=== PATIENT | male | born 1985 | race Caucasian/White ===

== ENCOUNTER 2022-01-16 14:11 | Inpatient (IN) | payer OTHER ==
[~2022-01-16] VITALS: Ht 152.4 cm; Wt 88.5 kg
--- NOTE | 2022-01-16 14:33 | NUR ---
PACIENTE MASCULINO DESORIENTADO X3, LLEGA EN S[place]A DE [place], AMIGO REFIERE SUSAN ESTADO TOMANDO DESDE EL ROMEO DE JAYME SIN PARAR.
--- NOTE | 2022-01-16 16:00 | NUR ---
SE RECIBE PTE MASCULINO ALERTA Y ORIENTADO ES EVASLUADO POR ,SE ORIENTA A PTE SOBRE ORDEN MEDICA,PTE POCO COOPERDOR CON EL TRATAMIENTO,SE REALIZA CAMBIO DE SABANAS Y CAMA YA QUE PTE BLANKENSHIP VOMITADO SOBRE LA CAMA Y SE CANALIZA Y COLOCA H/L Y SE ANDERSON MUESTRAS Y SE ENVIAN A LABORATORIO,SE ADMINISTRAN MEDICAMENTOS LOS CUALES TOLERA, Y SE PTE ESCUPE SOBRE LA CAMA, VOMITA SOBRE LA CAMA Y KRISTINE TIENE UN ENVASE PARA VOMITAR,SE MANTIENE A PTE POCO COOPERADOR Y SE NOTIFICA A .
== END 2022-02-08 16:43 | disposition home or self-care (01) | DRG 682 ==
LOC: ER 14:11 → ICU-2 19:09 → ICU 19:09 → ICU-2 23:49 → ICU 01-20 03:20 → MEDJ 02-05 20:28 → ICU 02-05 20:34
PROVIDERS: ADMIT Internal Medicine; ATTEND Internal Medicine
PROC: 4A12X4Z Monitoring of Cardiac Electrical Activity, External Approach (ICD-10-PCS; principal; 2022-01-16)
PROC: BW28ZZZ Computerized Tomography (CT Scan) of Head (ICD-10-PCS; 2022-01-16)
PROC: 4A033R1 Measurement of Arterial Saturation, Peripheral, Percutaneous Approach (ICD-10-PCS; 2022-01-16)
PROC: BW21ZZZ Computerized Tomography (CT Scan) of Abdomen and Pelvis (ICD-10-PCS; 2022-01-16)
PROC: 0BH17EZ Insertion of Endotracheal Airway into Trachea, Via Natural or Artificial Opening (ICD-10-PCS; 2022-01-18)
PROC: 5A1955Z Respiratory Ventilation, Greater than 96 Consecutive Hours (ICD-10-PCS; 2022-01-18)
PROC: 3E0G76Z Introduction of Nutritional Substance into Upper GI, Via Natural or Artificial Opening (ICD-10-PCS; 2022-01-20)
PROC: 0DH67UZ Insertion of Feeding Device into Stomach, Via Natural or Artificial Opening (ICD-10-PCS; 2022-01-20)
PROC: 05HB33Z Insertion of Infusion Device into Right Basilic Vein, Percutaneous Approach (ICD-10-PCS; 2022-01-20)
PROC: 8E0ZXY6 Isolation (ICD-10-PCS; 2022-01-21)
PROC: BB24ZZZ Computerized Tomography (CT Scan) of Bilateral Lungs (ICD-10-PCS; 2022-01-21)
PROC: 5A1D70Z Performance of Urinary Filtration, Intermittent, Less than 6 Hours Per Day (ICD-10-PCS; 2022-01-22)
PROC: B246ZZZ Ultrasonography of Right and Left Heart (ICD-10-PCS; 2022-01-22)
PROC: 3E0F7GC Introduction of Other Therapeutic Substance into Respiratory Tract, Via Natural or Artificial Opening (ICD-10-PCS; 2022-01-22)
PROC: BW28ZZZ Computerized Tomography (CT Scan) of Head (ICD-10-PCS; 2022-01-25)
DX: N17.8 Other acute kidney failure (principal); K85.20 Alcohol induced acute pancreatitis without necrosis or infection; J96.00 Acute respiratory failure, unspecified whether with hypoxia or hypercapnia; J15.8 Pneumonia due to other specified bacteria; A41.9 Sepsis, unspecified organism; F10.230 Alcohol dependence with withdrawal, uncomplicated; E87.2 Acidosis; K92.0 Hematemesis; E87.1 Hypo-osmolality and hyponatremia; E86.0 Dehydration; E87.8 Other disorders of electrolyte and fluid balance, not elsewhere classified; Z20.822 Contact with and (suspected) exposure to COVID-19; D69.49 Other primary thrombocytopenia